=== PATIENT | male | born 1985 | race Caucasian/White ===

== ENCOUNTER → 2024-11-05 17:33 | Outpatient (REF) | payer OTHER, SELFPAY | LOC: MRI 17:33 | PROVIDERS: ATTENDING PHYSICIAN Physician Assistant Medical | DX: S46.211D Strain of muscle, fascia and tendon of other parts of biceps, right arm, subsequent encounter (principal); G89.29 Other chronic pain; M25.511 Pain in right shoulder | CPT/HCPCS: 73221 ==

== ENCOUNTER → 2025-05-10 06:46 | Outpatient (REF) | payer OTHER, SELFPAY | LOC: HWRAD 06:46 | PROVIDERS: ATTENDING PHYSICIAN Physician Assistant Medical | DX: R74.8 Abnormal levels of other serum enzymes (principal) | CPT/HCPCS: 76700 ==